=== PATIENT | female | born 1985 | race Caucasian/White ===

== ENCOUNTER → 2024-05-15 | Outpatient (CLI) | payer OTHER ==
--- NOTE | 2024-05-21 12:51 | MM ---
Reason for Exam: Screening (asymptomatic). Last mammogram was performed 1 year(s) and 2 month(s) ago. Patient History: Menarche at age 11. First Full-Term at age 17. Hysterectomy at age 23. Patient has history of breast feeding. 01/04/2023, Benign Excisional Biopsy on the left side. 01/04/2018, Benign Excisional Biopsy on the right side. Maternal grandmother had breast cancer, age 45. Paternal grandmother had breast cancer. Sister had ovarian cancer, age 28. Risk Values: Sommer 5 year model risk: 1.0%. NCI Lifetime model risk: 13.1%. Prior Study Comparison: 02/25/2023 Bilateral Screening Mammogram, Unknown. Tissue Density: The breasts are heterogeneously dense, which may obscure small masses. Findings: Analyzed By CAD. The pattern is symmetrical. Abdomen appears stable. Benign spherical calcifications within the left breast. No suspicious groups of microcalcifications, spiculated or lobular masses, architectural distortion or other secondary signs of malignancy are mammographically apparent. Overall Assessment: Benign, BI-RAD 2 Management: Screening Mammogram of both breasts in 1 year. A negative mammogram report should not preclude additional follow up of suspicious palpable abnormalities. Patient should continue monthly self breast exam. A clinical breast exam by your physician is recommended on an annual basis and results should be correlated with mammographic findings. Note on Sommer scores and lifetime risk: 1. A Sommer score greater than 3% is considered moderate risk. If this is the case, consider specialist referral to assess eligibility for a risk reducing agent. 2. If overall lifetime risk for the development of breast cancer is 20% or higher, the patient may qualify for future screening with alternating mammogram and breast MRI. [facility], , 05/21/2024 12:48 PM. Electronically signed and approved by: Hector Mueller D.O. Radiologis
== END | disposition home or self-care (01) ==
LOC: RADMAMWWP 07:07
PROVIDERS: ATTEND Family Medicine
DX: Z12.31 Encounter for screening mammogram for malignant neoplasm of breast
CPT/HCPCS: 77063; 77067

== ENCOUNTER → 2024-05-18 | Outpatient (CLI) | payer OTHER ==
--- NOTE | 2024-05-18 10:28 | CA ---
Transthoracic Echo Report Name: Tara Kent Age: 38 Gender: F : 1985 Exam Date: 05/18/2024 08:41 Exam Location: [facility] Ht (in): 63 Wt (lb): 145 Ordering Physician: Ricardo Lopez MD Attending/Referring Phys: Meg Miranda NPC Events Administrative Assistant Gerda Salazar RDCS Procedure CPT: Indications: R07.9 CHEST PAIN Cardiac Hx: Technical Quality: Good Contrast 1: Total Dose (mL): Contrast 2: Total Dose (mL): MEASUREMENTS (Male / Female) Normal Values 2D ECHO LV Diastolic Diameter PLAX 3.9 cm 4.2 - 5.9 / 3.9 - 5.3 cm LV Systolic Diameter PLAX 2.7 cm IVS Diastolic Thickness 0.9 cm 0.6 - 1.0 / 0.6 - 0.9 cm LVPW Diastolic Thickness 1.0 cm 0.6 - 1.0 / 0.6 - 0.9 cm LV Relative Wall Thickness 0.5 RV Internal Dim ED PLAX 1.9 cm LA Systolic Diameter LX 3.6 cm 3.0 - 4.0 / 2.7 - 3.8 cm LV Diastolic Volume MOD BP 51.8 cm??? 67 - 155 / 56 - 104 cm??? LV Systolic Volume MOD BP 18.4 cm??? 22 - 58 / 19 - 49 cm??? LV Ejection Fraction MOD BP 64.5 % >= 55 % LV Cardiac Index MOD BP 1336.6 cm???/min???m??? LV Diastolic Volume MOD 4C 49.4 cm??? LV Systolic Volume MOD 4C 17.3 cm??? LV Ejection Fraction MOD 4C 64.9 % LV Cardiac Index MOD 4C 1283.7 cm???/min???m??? LV Diastolic Length 4C 7.7 cm LV Systolic Length 4C 6.1 cm LV Diastolic Volume MOD 2C 53.9 cm??? LV Systolic Volume MOD 2C 19.2 cm??? LV Ejection Fraction MOD 2C 64.3 % LV Cardiac Index MOD 2C 1389.6 cm???/min???m??? LV Diastolic Length 2C 7.4 cm LV Systolic Length 2C 6.0 cm M-MODE Aortic Root Diameter MM 2.8 cm LA Systolic Diameter MM 3.1 cm LA Ao Ratio MM 1.1 AV Cusp Separation MM 1.8 cm DOPPLER Mitral E Point Velocity 106.3 cm/s Mitral A Point Velocity 81.5 cm/s Mitral E to A Ratio 1.3 MV Deceleration Time 187.6 ms MV E' Velocity 11.8 cm/s Mitral E to MV E' Ratio 9.0 TR Peak Velocity 212.3 cm/s TR Peak Gradient 18.0 mmHg Right Ventricular Systolic Press 23.1 mmHg FINDINGS Left Ventricle Left ventricular ejection fraction is estimated at 55-60%. Normal Left ventricular size, wall thickness, systolic function with no obvious regional wall motion abnormalities. Normal Left ventricular diastolic filling pattern. Right Ventricle Normal right ventricular size and function. Right ventricular systolic pressure within normal limits. Right Atrium Normal right atrial size. Left Atrium Normal left atrial size. Mitral Valve Structurally normal mitral valve. Trace mitral regurgitation. No mitral stenosis. Aortic Valve Trileaflet aortic valve. No aortic valve stenosis or regurgitation. Tricuspid Valve Structurally normal tricuspid valve. Trace to mild tricuspid regurgitation. No tricuspid stenosis. Pulmonic Valve Structurally normal pulmonic valve. Trace pulmonic regurgitation. No pulmonic stenosis. Pericardium No pericardial or pleural effusion. Aorta Normal size aortic root and proximal ascending aorta. CONCLUSIONS Diagnosis: Chest pain Normal RV and LV size and function Thickened pericardium, prominent posterior pericardial stripe, no effusion Previewed by: Dr. Toby Sarkar MD (Electronically Signed) Final Date: 18 May 2024 10:28
--- NOTE | 2024-05-18 19:33 | CA ---
Exercise Stress Test Report Name: Tara Ketn Exam Date: 05/18/2024 09:06 Exam Location: [facility] Ht (in): 63 Wt (lb): 145 BSA: 1.69 Ordering Phys: Ricardo Lopez MD Referring Phys: Meg Miranda Technologist: Farooq Neumann Age: 38 Gender: F : 1985 Procedure CPT: Indications: R07.9 CHEST PAIN ICD-10 Codes: Patient History: Medications: GABAPENTIN Meds past 24 hrs: Pretest Chest Pain: STRESS TEST Jeff Protocol Exercise Duration (min:sec): 12:[address] Depressions (mm): Angina Score: L[place]ola Score: Resting HR (bpm): 82 Peak HR (bpm): 182 Resting BP (mmHg): 120 / 68 Peak BP (mmHg): 189 / 84 MPHR: 182 Target HR: 155 % MPHR: 100 METS: 12.1 Total Dose: Peak Dose: Atropine: Double Product: 44779 BP Response: Stress Termination: Reached target heart rate Stress Symptoms: No chest pain or symptoms Stress Summary: ECG ANALYSIS Resting ECG: Stress ECG: CONCLUSIONS Diagnosis: Recurrent chest discomfort Excellent exercise capacity on a Jeff protocol, 12 minutes, achieved 12.1 METs of workload Normal heart rate and blood pressure response No ECG evidence for ischemia or arrhythmia Dr. Toby Sarkar MD (Electronically Signed) Final Date: 18 May 2024 19:33
== END | disposition home or self-care (01) ==
LOC: RADECHMAIN 08:08
PROVIDERS: ATTEND Family Medicine
DX: R07.9 Chest pain, unspecified
CPT/HCPCS: 93017; 93306